=== PATIENT | female | born 1960 | race Two or more races ===

== ENCOUNTER 2025-07-18 09:59 | Outpatient (AMB) | payer OTHER, SELFPAY ==
--- NOTE | 2025-07-18 10:49 | MHC.OFFVIS ---
Intake Visit Reasons: 4m DPN Allergies procaine (From Novocain) Allergy (Unknown, Verified 07/14/25 13:40) Unknown Medication List - Last Reconciled 07/18/25 by Rosalio Aguilar MD aspirin (Adult Aspirin Regimen) 81 mg PO DAILY cholecalciferol (vitamin D3) 50 mcg PO DAILY estradiol 0.01%(0.1mg/gram) vaginal gabapentin 600 mg PO TID hydroxyzine pamoate 25 - 50 mg PO TID PRN insulin degludec (Tresiba FlexTouch U-100 insulin) units subcut magnesium oxide 400 mg PO BID paroxetine HCl 40 mg PO DAILY rosuvastatin 20 mg PO DAILY tirzepatide (Mounjaro) mg subcut trazodone 150 - 225 mg PO BEDTIME PRN HPI Comments Details: 64 yr woman with DM since her 30s. Better controlled lately. No recent A1C. She is getting lot of cramping and pain in calves at night. Last A1c of 7.? She says that she was fine until about 5 years ago then started getting pains in her legs.? She also has generalized body pains in the arms and legs which he attributes to fibromyalgia.? She says that her legs hurt all the time specially when she is walking or standing but they are more comfortable if she is sitting or lying down.? During one of her falls she fractured her left patella and had surgery for it. In another fall, she fractured her right ankle.? She also gets vertigo if she moves quickly and staggers.? If she walks any distance the legs start to feel very heavy and tight and sometimes they jerk.? She gets cramping in her legs at night.? She has chronic low back pain, which she says is from arthritis.? She's had an MRI of the lumbar spine in the last year,??possibly at [facility].? The report is not available.? She also complains of? pain, numbness, tingling and burning in the fingers. Legs feel weak. Walks with a cane. COUNTS INCLUDE 234 BEDS AT THE [facility] Medical History (Updated 07/18/25 @ 10:55 by Rosalio Aguilar MD) Diabetic neuropathy Fibromyalgia Review of Systems Const Details: Sleep:? Difficulty getting to sleepadmits.? Difficulty maintaining sleepadmits.? Urge to move legsadmits.? Teeth grindingdenies.? Shouting or Kicking during sleepdenies.? Abnormal behavior during sleepadmits.? Excessive sleepadmits.? Snoringadmits.? Daytime sleepinessdenies. ???General/Constitutional:? Change in appetitedenies.? Chillsdenies.? Fatigueadmits.? Feverdenies.? Weight gainadmits.? Weight lossadmits. ???Ophthalmologic:? Blurred visiondenies.? Diminished visual acuitydenies. ???ENT:? Stuffinessdenies.? Decreased hearingdenies.? Dry mouthdenies.? Ear paindenies.? Nosebleeddenies.? Ringing in the earsdenies.? Sinus paindenies.? Sore throatdenies.? Swollen glandsdenies. ???Endocrine:? Cold intolerancedenies.? Excessive thirstdenies.? Frequent urinationdenies.? Heat intolerancedenies. ???Respiratory:? Shortness of breathadmits.? Chest paindenies.? Coughadmits. ???Breast:? Breast lumpdenies.? Nipple dischargedenies. ???Cardiovascular:? Chest pain at restdenies.? Chest pain with exertiondenies.? Claudicationdenies.? Dizzinessdenies.? Fluid accumulation in the legsadmits.? Irregular heartbeatdenies.? Palpitationsdenies. ???Gastrointestinal:? Abdominal paindenies.? Constipationadmits.? Diarrheadenies.? Difficulty swallowingdenies.? Heartburnadmits.? Nauseaadmits.? Rectal bleedingdenies. ???Hematology:? Easy bruisingdenies.? Prolonged bleedingdenies. ???Genitourinary:? Frequent urinationadmits.? Urgencydenies.? Incontinenceadmits.? Erectile Dysfunctiondenies. ???Musculoskeletal:? Neck painadmits.? Back painadmits.? Muscle achesadmits.? Painful jointsadmits.? Sciaticadenies.? Weaknessadmits. ???Podiatric:? Difficulty walkingdenies.? Foot numbnessdenies. ???Neurologic:? Difficulty swallowingadmits.? Balance difficultyadmits.? Coordinationnormal.? Difficulty speakingdenies.? Dizzinessdenies.? Faintingdenies.? Gait abnormalityadmits.? Headachedenies.? Loss of strengthin lower extremities.? Loss of use of extremitydenies.? Low back paindenies.? Memory lossdenies.? Seizuresdenies.? Ticsdenies.? Tingling/Numbnessdenies.? Transient loss of visiondenies.? Tremordenies. ???Psychiatric:? Anxietyadmits.? Auditory/visual hallucinationsadmits.? Delusionsdenies.? Depressed moodadmits.? Stressorsadmits.? Substance abusedenies.? Suicidal thoughtsdenies. Physical Exam Neuro Other: Neurological: Abnormal neurological findings:??areflexia in the lower extremities.? Absent pin prick sensation below the knees.? Absent.? Vibration below the mid burns level Unsteady gait.?Mental Status:??alert and oriented X 3,?Normal attention, orientation, memory and affect.?Cranial Nerves:??Pupils are equal, round and reactive to light. Fundoscopy shows normal disc bilaterally. External occular muscles are intact. Visual anderson are full, no ptosis. Face is symmetrical, no facial weakness or droop. Facial sensations are normal. Tongue protrudes in midline. Palate elevates symmetrically. Shoulder shrugging is normal..?Motor Examination:??Normal muscle tone, bulk and strength,?No atrophy or fasciculations,?No drift of the extended upper extremities,?Deep tendon reflexes are 0+?,?Plantars are flexor?.?Motor Strength:?Proximal Muscles (out of 5):5Distal Muscles (out of 5):5Neck Flexors (out of 5):5Neck Extensors (out of 5):5Deltoid (out of 5):5Biceps (out of 5):5Triceps (out of 5):5Serratus Anterior (out of 5):5Wrist Extensors (out of 5):5APB (out of 5):5Finger Spread (out of 5):5Ileopsoas (out of 5):5Quadriceps (out of 5):5Hamstrings (out of 5):5Tibialis Anterior (out of 5):5Peronei (out of 5):5EDB (out of 5):5Gastrocnemius (out of 5):5Straight Leg Raising:??90 degrees.?Sensory Exam:??As above?,?Rhomberg sign is absent.?Coordination:??no ataxia,?no titubation,?tiztch-ht-haby, swbr-yzkc-asjp test and rapid alternating movements were normal.?Gait Exam:??Slightly unsteady.?Cerebellar Signs:??Jqsfbe-io-rsjy and lndx-mq-bxgk is normal,?no dysdiadochokinesia?.?Extrapyramidal System:??No tremor, rigidity with normal facial expressions,?No bradykinesia, no bradyphrenia. Normal arm swing and posture. No propulsion or retropulsion.?Speech:??Normal,?no dysphasia or dysarthria..? Mini Mental Status Exam: Level of Consciousness:??Alert.?Orientation:??Knows correct year, month, date, day and season,?Knows correct city, county and state. Knows correct location and floor.?Registration:??Able to register 3 objects.?Attention:??Serial 7's performed accurately.?Recall:??Able to recall 3 out of 3 objects.?Language:??Normal spontaneous speech, fluency, repetition,naming, comprehension, reading and writing.?Total Score:??30/30.? General Examination: GENERAL APPEARANCE:??normal,?in no acute distress.?HEAD:??normocephalic,?atraumatic.?EYES:??sclera non-icteric,?conjunctiva clear.?EARS:??auditory canal clear,?tympanic membrane intact, clear.?NOSE:??no lesions.?ORAL CAVITY:??gums normal,?mucosa moist,?no lesions.?THROAT:??clear.?NECK/THYROID:??no cervical lymphadenopathy,?thyroid normal,?neck supple, full range of motion,?no carotid bruit.?SKIN:??no rashes,?no significant birthmarks.?HEART:??S1, S2 normal,?no murmurs.?LUNGS:??clear anteriorly and posteriorly.?CHEST:??no gross rib deformity,?clear to auscultation.?BACK:??normal exam of spine.?EXTREMITIES:??no edema.?PERIPHERAL PULSES:??normal.?PSYCH:??alert, oriented,?cognitive function intact,?cooperative with exam.? 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 EMG in the left C5-T1 and left L4-S1 innervated muscles is consistent with neuropathic changes. Code(s): E11.40 - Type 2 diabetes mellitus with diabetic neuropathy, unspecified Category: Medical (2) Fibromyalgia: Code(s): M79.7 - Fibromyalgia Category: Medical (3) Vertigo: Comment: 02/23/25 MRI brain: age appropriate microvascular and atrophic changes Code(s): R42 - Dizziness and giddiness Category: Medical Plan Gradually increase the gabapentin 300 mg b.i.d. by 1 capsule every week ultimately getting up to 600 mg t.i.d. if tolerated or if pain is under control. Instructions have been given to the patient. Continue walking. Medications: New gabapentin 600 mg (2 x 300 mg) PO TID 180 caps 5RF 30 days Coding Level of Care Code Est Pt Level 4 (01014) Diagnoses Diabetic neuropathy E11.40 Fibromyalgia M79.7 Vertigo R42
--- OUTSIDE RECORDS SUMMARY | 2025-07-18 11:27 | XMS_ITS | Encounter Summary ---
Author Organization [facility] Address [address] [place] [address] Care Team Providers Care Digital Advertising Specialist Name Role Phone Richard Petty MD Primary Care Provider [phone] Encounter Details Date Type Department Care Team ([facility] st Contact Info) Description 04/18/2025 Lab Requisition [facility] - Main Lab [address] [facility] [place] [id number] August Norton, [address] [place] [address] Urinary tract infection, site not specified Social History Tobacco Use Types Packs/Day Years Used Date Smoking Tobacco: Never Smokeless Tobacco: Never Alcohol Use Standard Drinks/Week Comments Yes 0 (1 standard drink = 0.6 oz pur e alcohol) rarely Housing Instability Answer Date Recorde d Are you worried that in the next 2 months you may not have stable housing? No 12/08/2024 Food Access & Nutrition Answer Date Rec orded Do you have access to a vari ety of food including fruits and vegetables? Yes 12/08/2024 Access to Healthcare Answer Date Record ed Within the last 3 months, cali roberto many times did you visit the emergency department for your medical care? 0 12/08/2024 Health Literacy Answer Date Recorded How often do you need to hav e someone help you when you read instructions, pamphlets, or other written material from your doctor or pharmacy? Often 12/08/2024 Caregiver: How often do you need to have someone help you when you read instructions, pamphlets, or other written material from your doctor or pharmacy? Not on file 12/08/2024 Financial Risk Answer Date Recorded How hard is it for you to pa y for the very basics like food, housing, medical care, and air conditioning / heating? Hard 12/08/2024 Transportation Answer Date Recorded Has the lack of transportati on kept you from meetings, work, or from getting things needed for daily living? No Has the lack of transportati on kept you from medical appointments or from getting medications? No 12/08/2024 Social Isolation Answer Date Recorded How often do you feel lonely or isolated from th ose around you? Always 12/08/2024 Food Risk Answer Date Recorded Within the past 12 months we worried whether our food would run out before we got money to buy more. Never true 12/08/2024 Within the past 12 months th e food we bought just didn't last and we didn't have money to get more. Never true 12/08/2024 Dependent Care Answer Date Recorded Do you need help finding or paying for care for your loved ones. For example, director child or elderly care for an older adult? No 12/08/2024 Education Answer Date Recorded Do you think completing more education or training, like finishing a GED, going to college, or learning a trade, would be helpful for you? No 12/08/2024 Employment and Income Answer Date Recor ded During the last four weeks, have you been actively looking for work? No 12/08/2024 Living Situation Answer Date Recorded What is your living situation? Unrecognized valu e 12/08/2024 Comments Unknown Sex and Gender Information Value Date Recorded Sex Assigned at Female 12/20/2024 9:03 AM EDT Legal Sex Female 3:59 AM EST Gender Identity Female 12/20/2024 9:03 AM EDT Sexual Orientation Straight 12/20/2024 9: 03 AM EDT documented as of this encounter Plan of Treatment Upcoming Encounters Date Type Department Care Team ([facility] st Contact Info) Description 10/09/2025 9:30 AM EST Office Visit Pulmonology - [place] [address] [facility] [address] [place] [address] Emmanuel Martinez MD [address] [address] documented as of this encounter Procedures Procedure Name Priority Date/Time Associated Diagnosis Comments CULTURE URINE Routine 04/18/2025 12:00 AM EDT Urinary tract infection, site not specified documented in this encounter Results * (ABNORMAL) Culture urine (04/18/2025 12:00 AM EDT) Culture, Urine >=100,000 CFU/mL Escherichia coli(A) KERLINE 04/20/2025 9:16 AM EDT [facility] Urine Urine specimen obtained by clean catch procedure / Unknown 04/18/2025 04/18/2025 5:51 PM EDT Narrative Organism Antibiotic Method Susceptibility Escherichia coli Amoxicillin/Clavulanate KERLINE >=32 ug/ml: Resistant Escherichia coli Ampicillin/Sulbactam KERLINE >=32 ug/ml: Resistant Escherichia coli Piperacillin/Tazobactam KERLINE 64 ug/ml: Resistant Escherichia coli Cefazolin (Urine) KERLINE 8 ug/ml: Susceptible Escherichia coli Cefoxitin KERLINE <=4 ug/ml: Susceptible Escherichia coli Ceftazidime KERLINE <=0.5 ug/ml: Susceptible Escherichia coli Ceftriaxone KERLINE <=0.25 ug/ml: Susceptible Escherichia coli Cefepime KERLINE <=0.12 ug/ml: Susceptible Escherichia coli Meropenem KERLINE <=0.25 ug/ml: Susceptible Escherichia coli Amikacin KERLINE <=1 ug/ml: Susceptible Escherichia coli Gentamicin KERLINE <=1 ug/ml: Susceptible Escherichia coli Ciprofloxacin KERLINE 0.5 ug/ml: Intermediate Escherichia coli Levofloxacin KERLINE 1 ug/ml: Intermediate Escherichia coli Nitrofurantoin KERLINE <=16 ug/ml: Susceptible Escherichia coli Trimethoprim/Sulfamethoxazole KERLINE <=20 ug/ml: Susceptible [facility] MICROBIOLOGY - GENERAL ORDE CRISTINA Final Result [facility] [address] [place] [address], documented in this encounter Visit Diagnoses Diagnosis Urinary tract infection, site not specified documented in this encounter Additional Health Concerns Assessment Noted Time PHQ-9 Depression Total Score: 17 12/08/ 025 12:06 PM EST documented as of this encounter Care Teams Digital Advertising Specialist Relationship Specialty Start Date End Date Richard Petty MD [address] [address] PCP - General Internal Medicine 11/09/24 documented as of this encounter
--- OUTSIDE RECORDS SUMMARY | 2025-07-18 11:27 | XMS_ITS | Encounter Summary ---
Author Organization [facility] Address [address] [place] [address] Care Team Providers Care Net Repairer Name Role Phone Richard Petty MD Primary Care Provider [phone] Reason for Visit * Reason Onset Date Comments Request For Order(s) 07/07/2025 Bria Perales [facility] Care Cert 07/01/25-08/29/25 Plan Of Care Encounter Details Date Type Department Care Team (Late st Contact Info) Description 07/07/2025 Telephone Internal Medicine - [place] [address] [facility] [address] [place] [address] Malu Dangelo [place] Social History Tobacco Use Types Packs/Day Years [...] care for your loved ones. For example, early childhood services coordinator or elderly care for an older adult? [...] living situation? Unrecognized valu e 12/08/2024 Comments No Sex and Gender Information Value Date Recorded Sex Assigned at Female 12/20/2024 9:03 AM EDT Legal Sex Female 3:59 AM EST Gender Identity Female 12/20/2024 9:03 AM EDT Sexual Orientation Straight 12/20/2024 9: 03 AM EDT documented as of this encounter Progress Notes * Malu Dangelo [place] - 07/10/2025 1:53 PM EDT Scanned into chart and faxed to [facility] [place] [phone] * Malu Dangelo [place] - 07/07/2025 7:00 AM EDT [facility] 07/01/25-08/29/25 Plan Of Care Please sign & fax [phone] documented in this encounter Plan of Treatment Upcoming Encounters Date Type Department Care Team (Late st Contact Info) Description 10/09/2025 9:30 AM EST Office Visit Pulmonology - [place] [address] [facility] [address] [place] [phone] Emmanuel Martinez MD [address] [facility] [address] [place] [address] documented as of this encounter Visit Diagnoses Not on filedocumented in this encounter Additional Health Concerns Assessment Noted Time PHQ-9 Depression Total Score: 17 025 12:06 PM EST documented as of this encounter Care Teams Net Repairer Relationship Specialty Start Date End Date Richard Petty MD [address] [facility] [address] [place] [address] PCP - General Internal Medicine 11/09/24 documented as of this encounter
--- OUTSIDE RECORDS SUMMARY | 2025-07-18 11:27 | XMS_ITS | Clinical Summary ---
Author Organization [facility] Address [address] [place] [address] Phone Care Team Providers Care Application Coordinator Name Role Phone Richard Petty MD Primary Care Provider [phone] Allergies Active Allergy Reactions Criticality Noted Date Comments Procaine Other 01/30/2023 Novocain / Affects sugar level Medications aspirin 81 mg EC tablet Take 1 tablet (81 mg total) by mouth 1 (one) time each day. Active PARoxetine (PAXIL) 40 mg tablet Take 1 tablet (40 mg total) by mouth 1 (one) time each day in the morning. Active traZODone (DESYREL) 150 mg tablet Take 1 Tablet by mouth at bedtime. Active fluticasone propion-salmetero L (Advair Diskus) 100-50 mcg/dose diskus inhaler Inhale 1 puff by mouth 2 (two) times a day. 11/26/19 23 Active hydrOXYzine pamoate (VISTARIL) 25 mg capsule Take 1 capsule (25 mg total) by mouth at bedtime. 01/02/20 23 Active meclizine (ANTIVERT) 25 mg tablet Take 1 Tablet by mouth 2 times daily as needed (Vertigo) for up to 30 days. 07/03/20 23 Active albuterol HFA (Ventolin HFA) 90 mcg/actuation inhaler Sig: TAKE 2 PUFFS BY MOUTH EVERY 4 TO 6 HOURS NEEDED Active glucagon (Gvoke HypoPen 2-Pack) 0.5 mg/0.1 mL auto-injector INJECT 1 DOSE INTO THE SKIN NEEDED FOR OTHER (SEVERE HYPOGLYCEMIA ). 0.1 mL 08/19/20 Active UNABLE TO FIND CPAP Activ e rosuvastatin (CRESTOR) 20 mg tablet TAKE 1 TABLET (20 MG TOTAL) BY MOUTH ONE TIME EACH DAY 90 tablet 1 12/09/19 25 Active gabapentin (NEURONTIN) 300 mg capsule Take 1 capsule (300 mg total) by mouth 2 (two) times a day. 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 (NOT COVERED) 2 g 3 06/02/20 Active insulin aspart (NovoLOG FlexPen) 100 unit/mL (3 mL) injection penIndications:Ty pe 2 diabetes mellitus with neurological complications ([facility] V24, [facility] V28) Inject 15-20 Units under the skin 3 (three) times a day before meals. 15 mL 06/02/20 25 Active insulin degludec (Tresiba FlexTouch U-100) 100 unit/mL (3 mL) injection pen Inject 68 Units into the skin at bedtime. Increase by 2 units every 2 days if BS abive 150. 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 09/19/20 23 025 Discontinued pantoprazole (PROTONIX) 40 mg EC tablet Take 1 tablet (40 mg total) by mouth 1 (one) time each day. Do not crush, chew, or split. 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 She does have risk factors for cardiovascular disease including hyperlipidemia, diabetes among other things. To mitigate risk, I think it would be reasonable to initiate a statin for primary prevention. To that end, I am starting her on rosuvastatin 20 mg at bedtime. Would plan to repeat a fasting lipid profile in 3 to 4 months on current therapy. Elevated blood pressure reading 12/09/2024 Assessment & Plan (12/09/2024 4:58 PM EST): Patient has a technically high blood pressure today in the office however blood pressures during our of the visits are well within normal limits. Would continue to monitor at home and during other office visits. If average blood pressures remain above 130/80, could consider adding ALVIN inhibitor or ARB especially in light of diabetes. At this time, will hold off. Dyspnea 11/10/2024 Assessment & Plan (12/09/2024 1:24 PM EST): Sounds very much pulmonary in nature. At this point, before undertaking an extensive cardiac or even pulmonary workup, I would start by taking Advair as prescribed twice a day. I tried to distinguish the difference between a controlling medicine for asthma such as Advair and a rescue medicine. 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 If there is no improvement in symptoms with these interventions, we could consider stress testing at that point for refractory symptoms in 5 to 6 months. That said, she is not having any obvious anginal symptoms. Orders: Ambulatory referral to Cardiology ECG 12 lead Type 2 diabetes mellitus wit h other diabetic neurological complication ([facility] [place], [facility] V28) 10/07/2024 Unspecified fracture of left patella, initial encounter for closed fracture 10/07/2024 Major depressive disorder, single episode, unspe cified 10/07/2024 Unspecified asthma, uncomplicated 10/07/2024 Post-traumatic stress disorder 10/07/2024 Obstructive sleep apnea (adult) (pediatric) 12/2024 Type 2 diabetes mellitus with obesity 2024 Overview (07/05/2025): 07/05/25 Regulatory IMO Update Type 2 diabetes mellitus wit hout complication, with long-term current use of insulin ([facility] V24, [facility] V28) 07/14/2024 Type 2 diabetes mellitus wit h neurological complications ([facility] [place], [facility] V28) 03/03/2024 Depression 09/05/2022 Open fracture of left patella 09/05/2022 GABRIELLA (obstructive sleep apnea) 09/05/2022 PTSD (post-traumatic stress disorder) 09/05/2022 Encounters Date Type Department Care Team Description 07/10/2025 Telephone Pulmonology - [address] [phone] Emmanuel Martinez MD 07/07/2025 Telephone Internal Medicine - [address] [place] [phone] Malu Dangelo MA 06/22/2025 Telephone Internal Medicine - [place] [address] [phone] Malu Dangelo [place] 06/16/2025 Telephone Pulmonology [address] [phone] Emmanuel Martinez MD 06/09/2025 Telephone Internal Medicine [address] [phone] Antolin RASHI Toribio 06/02/2025 1:30 PM EDT Office Visit Endocrinology [address] [phone] Renetta Currie PA 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 [place] [address] August Norton PA Urinary tract infection, site not specified from Last 3 Months Immunizations Immunization Administration Dates Next Due Influenza, Unspecified 05/20/2023,05/31/2015,01/2014 Pneumococcal polysaccharide 23 valent (Pneumovax 23) 2yo and older 06/13/2022,07/17/2006 Tdap Tetanus diptheria acell ular pertussis (Boostrix; Adacel) 7yo and older 05/25/2023 Zoster recombinant (Shingrix ) 19yo and older 05/20/2023,01/31/2023 Surgical History Surgery Date Site/Laterality Comments OTHER SURGICAL HISTORY Left PROCEDURE: UT CLOSED TX PATELLAR FRACTURE W/O MANIPULATION OTHER SURGICAL HISTORY N/A PROCEDURE: UT RAD ABDL HYSTERECTOMY W/BI PELVIC LMPHADENECTOMY Family History Medical History Relation Name Comments CABG Father Other cancer Maternal Grandfather Breast cancer Maternal Grandmother CABG Maternal Grandmother Other cancer Mother Relation Name Status Comments Father Maternal Grandfather Maternal Grandmother Mother Social History Tobacco Use Types Packs/Day Years Used Date Smoking Tobacco: Never Smokeless Tobacco: Never Tobacco Cessation:Counseling Given: Not Answered Alcohol Use Standard Drinks/Week Comments Yes 0 [...] care for your loved ones. 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 [...] Orientation Straight 12/20/2024 9: 03 AM EDT Obstetrics History Last Filed Vital Signs Vital Sign Reading Time Taken Comments Blood Pressure 128/80 06/02/2025 1:42 PM EDT Pulse 78 06/02/2025 1:42 PM EDT Temperature 35.7 C (96.2 F) 06/02/2025 1:42 PM EDT Respiratory Rate 16 04/13/2025 3:05 PM EDT Oxygen Saturation 99% 04/13/2025 3:05 PM EDT Inhaled Oxygen Concentration - - Weight 93.1 kg (205 lb 3.2 oz) 06/02/2025 1:42 P M EDT Height 157.5 cm (5' 2 ) 06/02/2025 1:42 PM EDT Body Mass Index 37.53 06/02/2025 1:42 PM EDT Plan of Treatment Upcoming Encounters Date Type Department Care Team (Late st Contact Info) Description 10/09/2025 9:30 AM EST Office Visit Pulmonology - [place] [address] [facility] [address] [place] [phone] Emmanuel Martinez MD [address] [facility] [address] [place], [place] [id number] Health Maintenance Due Date Last Done Comments Colorectal Cancer Screening: Colonoscopy 1961 Diabetes: Annual Foot Exam 1971 Cervical Cancer Screening: Pap Smear 1982 RSV Immunization Adult Patients (1 - Risk 50-74 years 1-dose series) 2011 HIV Screening 09/07/2022 Hepatitis C Screening 09/07/2022 Pneumococcal Vaccine: 50+ Years (2 of 2 - PCV) 06/13/2023 06/13/2022, 05/26/2018, 07/17/2006 COVID-19 Vaccine (3 - 2024- season) 2025 03/15/2021, 02/21/2021 Influenza Vaccine (#1) 2025 , 06/12/2022, 08/09/2021, Additional history exists Diabetes: Blood Sugar Control Test (HGBA1C) 12/02/2025 06/02/2025, 12/22/2024, 2024, Additional history exists Social Influencers of Health Screening 12/08/2025 12/08/2024 Diabetes: Annual GFR (Glomerular Filtration Rate) 12/22/2025 12/22/2024, 02/22/2024, 02/22/2024 Hypertension/CHF/CAD Annual BMP Blood Test 12/22/2025 12/22/2024, 02/22/2024, 02/22/2024 Diabetes: Annual Retina Eye Exam 04/18/2026 04/18/2025, 03/22/2024 Diabetes: Annual Urine Albumin-Creatinine Ratio (uACR) 06/02/2026 06/02/2025, 02/22/2024 Breast Cancer Screening 09/24/2026 09/24/2024, 09/24 Cholesterol Screening (Lipid Panel) 12/22/2029 12/22/2024, 02/22/2024, 02/22/2024 DTaP,Tdap,and Td Vaccines (3 - Td or Tdap) 05/25/2033 05/25/2023, 07/12/2008 Zoster Vaccines Completed 05/20/2023, 01/31/2023 Depression Screening Completed 12/08/2024, 05/17/20 HIB Vaccines Aged Out No longer eligi ble based on patient's age to complete this topic HPV Vaccines Aged Out No longer eligi ble based on patient's age to complete this topic Hepatitis A Vaccines Aged Out No long er eligible based on patient's age to complete this topic Hepatitis B Vaccines Aged Out No long er eligible based on patient's age to complete this topic IPV Vaccines Aged Out No longer eligi ble based on patient's age to complete this topic MMR Vaccines Aged Out No longer eligi ble based on patient's age to complete this topic Meningococcal ACWY Vaccine Aged Out N o longer eligible based on patient's age to complete this topic Meningococcal B Vaccine Aged Out No l onger eligible based on patient's age to complete this topic RSV Immunization Patients Under 20 months Aged Out No longer eligible based on patient's age to complete this topic Varicella Vaccines Aged Out No longer eligible based on patient's age to complete this topic Procedures Procedure Name Priority Date/Time Associated Diagnosis Comments HEMOGLOBIN A1C Routine 06/02/2025 2:21 PM EDT 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 ([facility]/HCC V24, CMS/HCC V28) MICROALBUMIN CREATININE URINE RATIO Routine 06/02/2025 2:21 PM EDT 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 (CMS/HCC V24, CMS/HCC V28) POC GLUCOSE Routine 06/02/2025 1:46 PM EDT 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 (CMS/HCC V24, CMS/HCC V28) CULTURE URINE Routine 04/18/2025 12:00 AM EDT Urinary tract infection, site not specified COMPREHENSIVE METABOLIC PANEL Routine 12/22/2024 12:06 PM EDT Type 2 diabetes mellitus with other diabetic neurological complication (CMS/HCC V24, CMS/HCC V28) Mild intermittent asthma without complication Hypercholesterolemia Preop examination LIPID PANEL WITH REFLEX TO DIRECT LDL Routine 12/22/2024 12:06 PM EDT Type 2 diabetes mellitus with other diabetic neurological complication (CMS/HCC V24, CMS/HCC V28) Mild intermittent asthma without complication Hypercholesterolemia Preop examination EXTERNAL MAMMOGRAM REPORT 09/24/2024 DEPRESSION SCREENING Routine 05/17/2024 DIABETES EYE EXAM Routine 03/22/2024 from Last 3 Months or Most Recently Relevant to Health Maintenance Results * Microalbumin creatinine urine ratio (06/02/2025 2:21 PM EDT) Creatinine, Urine 229.0 mg/dL LAB CHEMISTRY METHOD 06/02/2025 5:52 PM EDT [facility] Microalb, Ur 19.1 0.0 - 29.0 mg/L LAB CHEMISTRY METHOD 06/02/2025 5:52 PM EDT [facility] Microalb/Creat Ratio 8 <30 mg/g creat LAB CHEMISTRY METHOD 06/02/2025 5:52 PM EDT [facility] Urine Urine specimen from urethra / Unknown Non-blood Collection / Unknown 06/02/2025 2:21 PM EDT 06/02/2025 2:21 PM EDT us Renetta OGDEN LAB URINE ORDERABLES Final Result [facility] [address] [place] [address], [place] [phone] * (ABNORMAL) Hemoglobin A1c (06/02/2025 2:21 PM EDT) Hemoglobin A1C 8.0(H) <6.5 % LAB CHEMISTRY METHOD 06/02/2025 10:05 PM EDT [facility] Mean Bld Glu Estim. 183 mg/dL LAB CHEMISTRY METHOD 06/02/2025 10:05 PM EDT [facility] Blood Venous blood specimen / Unknown Venipuncture / Unknown 06/02/2025 2:21 PM EDT 06/02/2025 2:21 PM EDT us Renetta OGDEN LAB BLOOD ORDERABLES Final Result [facility] [address] [place] [address], * POC glucose manually resulted (06/02/2025 1:46 PM EDT) Glucose POC 207 mg/dL Blood Capillary blood specimen / Unknown 06/02/2025 1:46 PM EDT Renetta OGDEN POINT OF CARE TEST ENTER/ED IT ORDERABLES Final Result * (ABNORMAL) Culture urine (04/18/2025 12:00 AM EDT) Culture, Urine >=100,000 CFU/mL Escherichia coli(A) KERLINE 04/20/2025 9:16 AM EDT [facility] Urine Urine specimen obtained by [...] August OGDEN LAB MICROBIOLOGY - GENERAL ORDE RABLES Final Result [facility] [address] [place] [address], [place] [phone] * (ABNORMAL) Lipid panel with reflex to direct LDL (12/22/2024 12:06 PM EDT) Cholesterol 139 0 - 200 mg/dL LAB CHEMISTRY METHOD 12/22/2024 3:22 PM EDT [facility] Triglycerides 196(H) 0 - 150 mg/dL LAB CHEMISTRY METHOD 12/22/2024 3:22 PM EDT [facility] HDL 61 >=40 mg/dL LAB CHEMISTRY METHOD 12/22/2024 3:22 PM EDT [facility] LDL Calculated 39 0 - 100 mg/dL LAB CHEMISTRY METHOD 12/22/2024 3:22 PM EDT [facility] VLDL Cholesterol Tylor 39.2 mg/dL LAB CHEMISTRY METHOD 12/22/2024 3:22 PM EDT [facility] Non HDL Chol. (LDL+VLDL) 78 <145 mg/dL LAB CHEMISTRY METHOD 12/22/2024 3:22 PM EDT [facility] Chol/HDL Ratio 2.3 0.0 - 4.4 LAB CHEMISTRY METHOD 12/22/2024 3:22 PM EDT [facility] Blood Venous blood specimen / Unknown Venipuncture / Unknown 12/22/2024 12:06 PM EDT 12/22/2024 12:40 PM EDT us Richard Petty MD LAB BLOOD ORDERABLES Final Resul t [facility] [address] [place] [address], [place] [phone] * (ABNORMAL) Comprehensive metabolic panel (12/22/2024 12:06 PM EDT) Sodium 136 133 - 145 mmol/L LAB CHEMISTRY METHOD 12/22/2024 3:22 PM [facility] Potassium 4.7 3.5 - 5.5 mmol/L LAB CHEMISTRY METHOD 12/22/2024 3:22 PM [facility] Chloride 104 96 - 110 mmol/L LAB CHEMISTRY METHOD 12/22/2024 3:22 PM [facility] CO2 27 21 - 32 mmol/L LAB CHEMISTRY METHOD 12/22/2024 3:22 PM [facility] Anion Gap 5 3 - 11 LAB CHEMISTRY METHOD 12/22/2024 3:22 PM [facility] Glucose 194(H) 70 - 100 mg/dL LAB CHEMISTRY METHOD 12/22/2024 3:22 PM [facility] BUN 24 5 - 25 mg/dL LAB CHEMISTRY METHOD 12/22/2024 3:22 PM [facility] Creatinine 1.17(H) 0.50 - 1.10 mg/dL LAB CHEMISTRY METHOD 12/22/2024 3:22 PM [facility] eGFR 53(L) >=60 mL/min/1. 73m2 LAB CHEMISTRY METHOD 12/22/2024 3:22 PM [facility] Comment:Calculation based on the Chronic Kidney Disease Epidemiology Collaboration (CKD-EPI) equation refit without adjustment for race. BUN/Creatinine Ratio 20.5 LAB CHEMISTRY METHOD 12/22/2024 3:22 PM [facility] Calcium 9.3 8.5 - 10.5 mg/dL LAB CHEMISTRY METHOD 12/22/2024 3:22 PM [facility] AST (SGOT) 26 10 - 42 unit/L LAB CHEMISTRY METHOD 12/22/2024 3:22 PM [facility] ALT (SGPT) 30 10 - 60 unit/L LAB CHEMISTRY METHOD 12/22/2024 3:22 PM EDT [facility] Alkaline Phosphatase 143(H) 42 - 121 unit/L LAB CHEMISTRY METHOD 12/22/2024 3:22 PM EDT [facility] Total Protein 7.3 6.0 - 8.0 g/dL LAB CHEMISTRY METHOD 12/22/2024 3:22 PM EDT [facility] Albumin 3.6 3.2 - 5.0 g/dL LAB CHEMISTRY METHOD 12/22/2024 3:22 PM EDT [facility] Total Bilirubin 0.4 0.0 - 1.4 mg/dL LAB CHEMISTRY METHOD 12/22/2024 3:22 PM EDT [facility] Blood Venous blood specimen / Unknown Venipuncture / Unknown 12/22/2024 12:06 PM EDT 12/22/2024 12:40 PM EDT Richard Petty MD LAB BLOOD ORDERABLES Final Resul t [facility] [address] [place] [address], * External Mammogram Report (09/24/2024) Anatomical Region Laterality Modality Mammography Provider Sherice Onbase IMG BI PROCEDURES Final Result * Depression Screening (05/17/2024) Depression Screening abstracted Historical Provider HEALTH MAINTENANCE Final Result * Diabetes Eye Exam (03/22/2024) Diabetes: Annual Retina Eye Exam abstracted Historical Provider HEALTH MAINTENANCE Final Result from Last 3 Months or Most Recently Relevant to Health Maintenance Insurance [employer] Care Teams Application Coordinator Relationship Specialty Start Date End Date Richard Petty MD [address] [id number] PCP - General Internal Medicine 11/09/24
== END 2025-07-18 11:02 | disposition home or self-care (01) ==
LOC: HO.HSM 10:00
PROVIDERS: PCP Internal Medicine; Referring Provider Internal Medicine; Visit Provider Psychiatry & Neurology Neurology
DX: E11.40 Type 2 diabetes mellitus with diabetic neuropathy, unspecified (principal); M79.7 Fibromyalgia; R42 Dizziness and giddiness
CPT/HCPCS: 99214

== ENCOUNTER → 2025-07-18 09:59 | Outpatient (BNVA) | payer OTHER, SELFPAY | PROVIDERS: PCP Internal Medicine; Referring Provider Internal Medicine; Visit Provider Psychiatry & Neurology Neurology | DX: R42 Dizziness and giddiness (principal); E11.40 Type 2 diabetes mellitus with diabetic neuropathy, unspecified; M79.7 Fibromyalgia | CPT/HCPCS: 99212 ==